=== PATIENT | female | born 1955 | race Caucasian/White ===

== ENCOUNTER 2025-04-03 14:34 | Emergency (ER) | payer MEDICARE, OTHER ==
[~2025-04-03] VITALS: Ht 175.3 cm; Wt 72.7 kg
[~2025-04-03 14:34] MED LIST: NO HOME MEDS; ONDA4TAB6 PO; RIVA15TA PO
--- NOTE | 2025-04-03 14:48 | ELECTROCARDIOGRAPH REPORT ---
[facility] Test Date: 2025-04-03 Test Time: 14:47:03 Pat Name: GEN HE Department: [facility]- Patient ID: [facility]-[id number] Room: Gender: F Insurance Claim Approver: : 1955 Requested By: KAREN URIBE Order Number: [id number] Reading MD: Dr. Greg Mcgee Measurements Intervals [place] Rate: 95 P: 89 VT: 141 QRS: 72 QRSD: 88 T: 51 QT: 348 QTc: 438 Interpretive Statements Sinus rhythm Biatrial enlargement Electronically Signed On 04-04-2025 10:24:[address] Greg Mcgee Please click the below link to view image of tracing.
[2025-04-03 15:08] LABS: BASOPHILS % (AUTO) 0.7 % (0-1); EOSINOPHILS # (AUTO) 0.1 X10'3 (0-0.9); HEMATOCRIT 45.5 % (35.0-45.0); HEMOGLOBIN 15.5 g/dl (12.0-16.0); LYMPHOCYTES # (AUTO) 2.2 X10'3 (1.1-4.8); LYMPHOCYTES % (AUTO) 31.8 % (21-51); MEAN CORPUSCULAR HEMOGLOBIN 30.1 PG (27.0-31.0); MEAN CORPUSCULAR VOLUME 88.6 FL (78-98); MEAN PLATELET VOLUME 7.6 FL (7.4-10.4); MONOCYTES # (AUTO) 0.6 X10'3 (0-0.9); MONOCYTES % (AUTO) 8.4 % (2-12); NEUTROPHILS % (AUTO) 58.1 % (42-75); PLATELET COUNT 283 X10'3 (140-440); RED BLOOD COUNT 5.14 X10'6 (4.20-5.60); WHITE BLOOD COUNT 6.9 X10'3 (4.5-11.0)
--- NOTE | 2025-04-03 15:17 | RADIOLOGY REPORT ---
CHEST RADIOGRAPH Indication: CP Technique: Single frontal view of the chest was obtained COMPARISON: None FINDINGS: Lines and Tubes: None Lungs: Clear Pleura: No effusion. No pneumothorax. Cardiomediastinal contours: Unremarkable Bones: Unremarkable IMPRESSION: No acute disease.
[2025-04-03 15:34] LABS: ALBUMIN 3.8 G/DL (3.4-5.0); ANION GAP 11 (8-16); BLOOD UREA NITROGEN 34 MG/DL (7-18); BUN/CREATININE RATIO 39.5 (10.0-20.0); CALCIUM 9.5 MG/DL (8.5-10.1); CHLORIDE 104 MMOL/L (99-107); CREATININE 0.86 MG/DL (0.40-0.90); GLUCOSE 112 MG/DL (70-104); POTASSIUM 3.7 MMOL/L (3.5-5.1); PRO BRAIN NATRIURETIC PEPTIDE 46 PG/ML (0-125); SODIUM 139 MMOL/L (135-145); TOTAL CARBON DIOXIDE 23.9 MMOL/L (24-32); eCRCL 65 ML/MIN; eGFR 66 ML/MIN
--- NOTE | 2025-04-03 16:28 | Physician Documentation ---
History of Present Illness ~ Chief Complaint: Shortness of Breath Stated Complaint: POSS BLOOD CLOT Time Seen by MD: 16:18 Primary Medical Doctor: Sincere Mode of Arrival: POV HPI This is a very pleasant 69-year-old female with a known history of prior PE, several years ago, was on anticoagulation for a year and was taken off after she tested negative for factor five Leiden, she is five weeks post right TKA. She presents for evaluation of sudden onset unprovoked shortness a breath, similar to her prior pulmonary embolism. This started this morning. The particular palliating factors, it is exertional. She was out of breath just doing the dishes. This is similar to prior PE. Did not attempt to treat it. Currently not anticoagulated and she was on blood thinners for two weeks after the surgery. Reports chest discomfort but no ellen chest pain. No concern for tobacco, alcohol or illicit substances. Medication Reconciliation Allergies: Coded Allergies: diazepam (Verified Allergy, Unknown, 06/29/15) Scheduled Ondansetron Hcl (Zofran), 1 TAB PO Q8H Rivaroxaban (Xarelto), 15 MG PO BID Miscellaneous Medications Home Med List (No Home Medications), (Reported) Past Medical History Past Medical History: Pulmonary Embolism, UTI, Thyroid (unspecified), Deep Vein Thrombosis, C-Diff Past Surgical History: no surgical history Patient History: (Cancer) Malignant carcinoid tumor MOTHER No Family History of: (CVA) Cerebrovascular accident Alcohol Use: Occasionally Drug Use: none Lives In: Home Review of Systems ROS 10 point review of systems was performed and unless noted above in HPI is negative for acute process/complaint. Physical Exam Vital Signs: Temperature: 97.2, Source: Oral, Heart Rate: 76, Respiratory Rate: 14, BP: 128/79, Pulse Oximetry: 95, Weight: 72.700 Physical Exam GENERAL: Awake, alert, oriented, GCS 15, no apparent distress, non-toxic appearing, answers questions, follows commands appropriately. Examined in bed 16. HEENT: Atraumatic, normocephalic, pupils equal, extraocular muscles intact, sclerae anicteric, mucus membranes moist, oropharynx is clear, no stridor. NECK: supple, full active range of motion, trachea midline, no thyromegaly, no lymphadenopathy, no JVD. CARDIOVASCULAR: Intermittently tachycardic and regular rate/rhythm, no murmurs/gallops/rubs, Pulses are 2+ in all extremities and symmetric. Capillary refill less than 2 seconds. PULMONARY: Nonlabored, good air movement ,no respiratory distress, speaking in full sentences, clear to auscultation bilaterally, no wheezing, no ronchi, no rales, no accessory muscle use. GASTROINTESTINAL: Soft, non-tender, non-distended, normal active bowel sounds, no organomegaly, no pulsatile masses, no CVA tenderness. NEUROLOGIC: Lucid with normal mental status. Normal facial symmetry. Moves all extremities symmetrically and with purpose. No truncal ataxia. Speech is fluid without evidence of dysarthria or aphasia, no focal deficits appreciated. MUSCULOSKELETAL: There is full range of motion of all extremities. There is no joint pain or joint swelling or joint erythema. There is no muscle pain or tenderness or swelling. EXTREMITIES: warm, well-perfused, no cyanosis, no clubbing, no edema, no acute deformities. Skin: warm, dry, no rashes or lesions, no jaundice, no petechiae orpurpura. No ecchymosis. PSYCHIATRIC: Normal affect, normal insight, normal concentration. Focused exam: [] Progress Results/Orders Results/Orders Completed Orders - HENRRY SANDOVAL BODY TECHNICIAN/PAINTER Iohexol 350mg/Ml 100ml (Omnipaque 350mg/ (04/03/25 16:31) Vital Signs 04/03/25 04/03/25 04/03/25 04/03/25 14:40 16:17 16:20 17:16 Temp 97.2 97.2 97.2 Pulse 95 76 77 Resp 17 14 14 18 B/P (MAP) 111/85 128/79 (95) 135/82 (99) Pulse Ox 97 95 98 04/03/25 17:46 Temp 97.2 Pulse 76 Resp 18 B/P (MAP) 135/82 (99) Pulse Ox 98 Laboratory Tests Test 04/03/25 14:52 White Blood Count 6.9 Red Blood Count 5.14 Hemoglobin 15.5 Hematocrit 45.5 H Mean Corpuscular Volume 88.6 Mean Corpuscular Hemoglobin 30.1 Mean Corpuscular Hemoglobin Concent 34.0 Red Cell Distribution Width 14.0 Platelet Count 283 Mean Platelet Volume 7.6 Neutrophils (%) (Auto) 58.1 Lymphocytes (%) (Auto) 31.8 Monocytes (%) (Auto) 8.4 Eosinophils (%) (Auto) 1.0 Basophils (%) (Auto) 0.7 Neutrophils # (Auto) 4.0 Lymphocytes # (Auto) 2.2 Monocytes # (Auto) 0.6 Eosinophils # (Auto) 0.1 Basophils # (Auto) 0.0 CBC Comment Sodium Level 139 Potassium Level 3.7 Chloride Level 104 Carbon Dioxide Level 23.9 L Anion Gap 11 Blood Urea Nitrogen 34 H Creatinine 0.86 Estimated GFR/1.73 m2 66 BUN/Creatinine Ratio 39.5 H Glucose Level 112 H Calcium Level 9.5 Troponin I High Sensitivity 5 Pro-B-Type Natriuretic Peptide 46 Albumin 3.8 Chemistry Comments Medical Decision Making Findings Facility Status: ED Holds, [facility] process The plan was discussed with the patient, who demonstrates clear understanding of the plan and is in agreement with the plan unless otherwise noted in the chart. All questions have been answered, all concerns were addressed unless otherwise documented. I was available throughout their ED stay for frequent reassessment and questions. Differential Diagnoses (considered and possible or likely): [There are multitude of causes for shortness a breath, however given her risk factors, PE has a top of differential diagnosis. Additionally considered CHF, COPD, ACS, pneumonia, occult bacteremia, less likely pneumothorax, less likely mitochondrial poisoning such as cyanide, carbon monoxide, aspirin, anemia has been considerably less likely. ] ??Differential Diagnoses (considered and unlikely, not requiring evaluation currently): [No evidence of trauma] MDM Data Please see HPI for the following: Independent Historians and external Records Review. Historian: [Patient] Independent Historians: ?[Record review] Medication Management: [Reviewed medication list] Social History and determinants: [Reviewed] Please see the body of the note for the following: Any independent interpretations of ECG, imaging studies. All vitals signs/haemodynamics, ordered tests were independently reviewed and interpreted by myself. Nursing triage complaint and vitals reviewed, additional nursing notes were reviewed as available and I agree unless otherwise noted or documented in contradiction in the chart Vital Signs: Independently reviewed Labs: Independently interpreted Imaging: Independently interpreted Old Medical Records: Independently reviewed, see HPI for relevant summary and information Pulse Oximetry: [96%] interpreted as [normal on room air] by me [Busser: [Regular Rate, Regular rhythm, no ectopy, NSR] reviewed and interpreted by me] Additionally notably showing: [Hemodynamics reviewed. She is intermittently tachycardic but not hypoxic.] Hematologic workup was unremarkable. Troponin and BNP are negative. CT angiography of chest [] Tests considered but not ordered include: [D-dimer has been considered but getting plethora of risk factors, we will obtain CTA] Social Determinants of Health Impact: Patient was evaluated in [facility] [place] to healthcare due to below par ratio of patient to medical providers. [] Comorbid Conditions Impacting Present Evaluation and Care/Treatment: [History of PE] Management Discussions with other Healthcare Providers: [] Treatment and Disposition Medication Management (Given or considered): []. See EMR for details Consideration for Hospitalization/Escalation/Deescalation of Care: Admission for observation has been considered, [however the patient is able to tolerate p.o., their symptoms are controlled, they are able to rely on oral medications, and their chief complaint/diagnosis can be managed on outpatient basis.] ?ED Course:?[] ?Shared decision making:?[] Code status:?FULL Please see the full Electronic Medical Record for full details of nursing documentation, medications list, other records of complete past medical history and conditions, vital signs, laboratory studies, and any radiologic study interpretations by radiologists. Portions of this note were completed using MailWriter dictation software and as a result there may exist minor errors in spelling. I have reviewed elements of past family and social history and agree as included in note. Patient's CTA was unremarkable and showed no evidence of PE. Patient's symptoms of resolved as well. Her vitals has been reassuring throughout her her stay in the ED. at this point I am going to discharge her with a advised to follow up with the laboratory helper. She says she has not the laboratory helper and an appointment in one week's time. Differential Dx:Considerations: Include: anxiety, asthma, bronchitis, cardiogenic shock, CHF, COPD, dysrhythmia, hypertension, accelerated, hypertension, essential, hypertension, malignant, hyperventilation, hyp onatremia, myocardial infarction, panic attack, pneumonia, pneumonitis, pneumothorax, PSVT, pulmonary embolism, respiratory distress, respiratory failure, sinusitis, upper resp. infection, other Departure Disposition: HOME / SELF CARE / HOMELESS Impression: Primary Impression: Exertional dyspnea Additional Impression: History of pulmonary embolism Condition: Stable Additional Instructions: Has discussed her CTA was very reassuring. At this time we are going to discharge you and have you follow up with your laboratory helper. Referrals: NO PRIMARY CARE PROVIDER (PCP) Signature Scribe Signature: No scribe Attestation: This note accurately reflects clinical decisions, work performed by myself, DO RONY Carrera NICHOLAS M DO Apr 03, 2025 16:28 HENRRY SANDOVAL NP Apr 03, 2025 17:51
[2025-04-03] MEDS ORDERED: iohexol 350MG/ML 100ml bottle IV ONE (16:31)
--- NOTE | 2025-04-03 17:29 | RADIOLOGY REPORT ---
CTA Chest with intravenous contrast INDICATION: sob, hx opf pe COMPARISON: None TECHNIQUE: Multidetector spiral CTA of the chest was performed of the chest with intravenous contrast . PULMONARY ANGIOGRAPHY PROTOCOL was utilized using a bolus-tracking technique centered on the main p ulmonary artery. Axial, coronal and sagittal multiplanar and MIP reformats were performed. CONTRAST: Type of contrast: Omni 350 Contrast injected: 100 ml Radiation dose : Chest: CTDI volume is 19 mGy. Dose-length product is 641 mGy*cm The dose indicators for CT are the volume computed Tomography (CT) dose Index (CTDIvol) and the dose Length product (DLP), and are measured in units of mGy and mGy-cm, respectively. These indicators are not patient dose, but values generated from the CT scanner acquisition factors. The report includes radiation exposure data for exposures received during this examination. Findings: Pulmonary artery: No pulmonary embolism Lower neck: Subcentimeter right thyroid cyst or nodule. Lungs: No focal consolidation, pleural effusion or pneumothorax. Atelectasis and scarring in the lung bases. Heart/Vascular Structures: Normal heart size. No pericardial effusion. Lymph Nodes: No adenopathy Pleura: No pleural effusion or significant pneumothorax. Musculoskeletal: No acute osseous abnormality. Soft tissues: Normal. Upper abdomen: Cholelithiasis. IMPRESSION: 1. No pulmonary embolism. 2. No acute thoracic finding. 3. Right thyroid cyst or nodule. Cholelithiasis. HS:Y
[2025-04-03 18:01] VITALS: BP 135/85; PULSE 83; RESP 16; TEMP 98.2; O2SAT 100
== END 2025-04-03 18:03 | disposition home or self-care (01) ==
LOC: ER 14:34
DX: R06.02 Shortness of breath (principal); Z86.711 Personal history of pulmonary embolism; Z86.718 Personal history of other venous thrombosis and embolism; Z88.8 Allergy status to other drugs, medicaments and biological substances; Z79.01 Long term (current) use of anticoagulants; Z79.899 Other long term (current) drug therapy; Z72.89 Other problems related to lifestyle
CPT/HCPCS: 36415; 71045; 71275; 80048; 83880; 84484; 85025; 93005; 99285; J7030; Q9967